=== PATIENT | female | born 1935 | race Caucasian/White ===

== ENCOUNTER 2016-11-16 12:14 | Inpatient (IN) | payer OTHER ==
[~2016-11-16] VITALS: Ht 157.5 cm; Wt 61.2 kg
--- NOTE | ~2016-11-16 | HC ---
[facility] [place] [address] CONSULTATION Name: RODOLFOALEJA Room #: 437-P ADM IN M.R.#: [id number] Admission: 11/16/16 Attend Phys: Daniel Jenkins MD Discharge: Date of : 36 Report #: [id number] THIS REPORT FOR: //name// CC: ANGEL Jenkins DATE OF SERVICE: 11/17/2016 HISTORY OF PRESENT ILLNESS: I have been asked to evaluate this 81-year-old lady who has presented to the emergency department with chief complaint of mid abdominal pain. The patient reported the onset of symptoms at approximately 2300 the evening prior to admission, which would have been Tuesday night. This has been intermittent with the symptoms worsening in the a.m. She denies vomiting, but she does have ongoing nausea with the abdominal pain. The patient's past medical history is significant for a bowel obstruction approximately 7 years ago in the [facility] requiring and necessitating a partial colectomy according to the family, those records are not available. PAST MEDICAL HISTORY: Medical illnesses, she has had no medical illnesses. PAST SURGICAL HISTORY: In 2009, colon resection and also hysterectomy in the past. MEDICATIONS: No known medications. SOCIAL HISTORY: She was recently moved from the [facility] to [place] to be near her family. She denies smoking cigarettes, does not use alcohol. REVIEW OF SYSTEMS: A 10-point review of systems essentially noncontributory except for the recent onset of the abdominal pain associated with nausea. PHYSICAL EXAMINATION: GENERAL: Reveals an elderly lady resting comfortably in bed, IV is infusing, daughter is at the bedside. She is afebrile. VITAL SIGNS: Within normal limits. HEENT: Pupils equal, round, react to light. NECK: Supple, full range of motion. CARDIOVASCULAR: Regular rate and rhythm. LUNGS: Clear at the bases bilaterally. ABDOMEN: Nondistended, mild tenderness in the lower abdomen, well healed long midline scar consistent with the previous colon surgery. RECTAL: Not performed. NEUROLOGIC: She is oriented times 3, seems to be somewhat forgetful and slow with her answers regarding remote medical history. [facility] [address] [place] [address] CONSULTATION Name: ALEJA REYNOLDS MICHELLE Room #: 437-P ADM IN M.R.#: [id number] Admission: 11/16/16 Attend Phys: Daniel Jenkins MD Discharge: Date of : 36 Report #: [id number] DIAGNOSTIC IMPRESSION: Review of laboratory demonstrates white blood cell count within normal limits. CT scan is consistent with possible partial small-bowel obstruction and there is a colonic gas in the colon as well as the rectal . PLAN: I would recommend NG tube placement, IV fluids, repeat labs and x-rays in the a.m. The patient does not have an acute abdomen at this time requiring immediate or urgent operation. Thank you for allowing us to participate in her care. <ELECTRONICALLY SIGNED> By: Mikey Howell MD, FACS 11/18/16 1137 [id number] Mikey Howell MD, FACS /nt
--- NOTE | ~2016-11-16 | O ---
[facility] [place] [address] OPERATIVE REPORT Name: ALEJA REYNOLDS MICHELLE Room #: 437-P ADM IN M.R.#: [id number] Admission: 11/16/16 Attend Phys: Daniel Jenkins MD Discharge: Date of : 36 Report #: [id number] THIS REPORT FOR: //name// CC: ANGEL Jenkins DATE OF SERVICE: 11/19/2016 PREOPERATIVE DIAGNOSIS: Small-bowel obstruction. POSTOPERATIVE DIAGNOSIS: Small-bowel obstruction, secondary to dense adhesive bands of mid small bowel. PROCEDURE: Diagnostic laparoscopy, lysis of adhesions for 46 minutes, release of small-bowel obstruction. SURGEON: Mikey Howell M.D. LIBRARY CLERK TALKING BOOKS: Nikita Ziegler M.D. INDICATIONS: An 81-year-old lady, who had previous colon surgery, consistent with an ileocecectomy approximately 7 years ago, now has presented with approximately 36-48 hours of intense abdominal pain, cramping pain. CT scan was consistent with small-bowel obstruction. OPERATIVE PROCEDURE: The patient had thorough discussion of the procedure, benefits, and risks. She gave informed consent to proceed. She was given preoperative IV antibiotics. She was brought to the operating suite and had satisfactory induction of general anesthesia. She had a Toussaint catheter inserted. She also had an NG tube placed initially. After sterile paint only with DuraPrep was performed, draping was completed. An appropriate timeout was then performed. In the left upper quadrant, a 5 mm trocar with a 5-0 scope was utilized to access the peritoneal cavity. Pneumoperitoneum was then established. The dilated loops of small bowel with the adhesive band were well visualized in the left lower quadrant towards the midline. A second 5 mm trocar port was placed under direct vision in the left lower quadrant. A third 5 mm port was placed in the mid epigastric region just to the left of the falciform ligament. After inspection, the omental adhesions were tight to the anterior abdominal wall. These were taken down with the Sonicision. The bowel obstruction was then addressed with the cold scissors phoenix to lyse the tight adhesive band. Photographs were taken and made part of the medical record. Two segments of the small bowel had some stricturing, from the tight adhesive band. No ischemic bowel was encountered. The bowel was then run from ligament of Treitz identified, run distally toward the right lower quadrant. A few other adhesions were lysed utilizing the cold phoenix. Aspiration of bloody fluid was performed. The bowel in its entirety appeared [place] [address] OPERATIVE REPORT Name: ALEJA REYNOLDS MICHELLE Room #: 437-P [facility] IN M.R.#: [id number] Admission: 11/16/16 Attend Phys: Daniel Jenkins MD Discharge: Date of : 36 Report #: [id number] the strictured area. Further inspection was completed, hemostasis was complete. The pneumoperitoneum was evacuated under direct inspection. The trocars were removed under direct inspection. The port sites had skin approximation with interrupted 4-0 Monocryl sutures. Dermabond was applied. The estimated blood loss for the entire procedure was less than 10 mL. The patient returned to recovery room in stable and satisfactory condition with removal of the Toussaint catheter and NG tube prior to return to PACU. <ELECTRONICALLY SIGNED> By: Mikey Howell MD, FACS 11/19/16 1524 0952 1250 Mikey Howell MD, FACS /nt
[2016-11-16 12:16] VITALS: BP 177/78
[2016-11-16 13:07] LABS: URINE BILIRUBIN NEGATIVE (Negative); URINE BLOOD NEGATIVE (Negative); URINE COLOR YELLOW; URINE GLUCOSE-RANDOM* NEGATIVE (Negative); URINE KETONES NEGATIVE (Negative); URINE LEUKOCYTES-REFLEX TRACE (Negative); URINE PROTEIN (DIPSTICK) NEGATIVE (Negative); URINE UROBILINOGEN 0.2 E.U./dl (0.2-1.0)
[2016-11-16 13:55] LABS: EOSINOPHILS 4.7 % (0.0-3.0); HEMATOCRIT 39.6 % (37.0-47.0); HEMOGLOBIN 13.6 gm/dL (12.0-15.0); LYMPHOCYTES 32.4 % (24.0-44.0); MANUAL DIFF NO; MCH 29.6 pg (26.0-34.0); MCHC 34.3 g/dL (28.0-37.0); MCV 86.5 fL (80.0-100.0); MONOCYTES 8.5 % (1.0-8.0); PLATELET COUNT 319 thou/uL (150-400); POLYS 52.4 % (36.0-66.0); RBC 4.59 mil/uL (4.20-5.00); RDW 13.7 % (10.5-14.5); WBC 5.8 thou/uL (4.0-11.0)
[2016-11-16 13:58] LABS: CALCIUM 9.6 mg/dL (8.5-10.1); CREATININE 0.9 mg/dL (0.6-1.0)
[2016-11-16 14:03] LABS: ALBUMIN 4.1 g/dL (3.4-5.0); TOTAL BILIRUBIN 0.9 mg/dL (<0.1-1.0); TOTAL PROTEIN 7.5 g/dL (6.4-8.2)
[2016-11-16 19:35] VITALS: BP 145/56
[2016-11-16 20:13] VITALS: BP 145/56
[2016-11-17 03:30] VITALS: BP 118/50
[2016-11-17 05:40] LABS: HEMATOCRIT 38.3 % (37.0-47.0); HEMOGLOBIN 12.9 gm/dL (12.0-15.0); MCH 29.6 pg (26.0-34.0); MCHC 33.7 g/dL (28.0-37.0); MCV 87.7 fL (80.0-100.0); RBC 4.37 mil/uL (4.20-5.00); RDW 13.7 % (10.5-14.5); WBC 6.1 thou/uL (4.0-11.0)
[2016-11-17 06:05] LABS: ALBUMIN 3.5 g/dL (3.4-5.0); CREATININE 0.9 mg/dL (0.6-1.0); POTASSIUM 3.5 mmol/L (3.5-5.1); TOTAL BILIRUBIN 0.9 mg/dL (<0.1-1.0); TOTAL PROTEIN 6.6 g/dL (6.4-8.2)
[2016-11-17 07:53] VITALS: BP 121/50
[2016-11-17 08:21] VITALS: BP 121/50
[2016-11-17 15:38] VITALS: BP 136/52
[2016-11-17 19:48] VITALS: BP 133/63
[2016-11-18 04:00] VITALS: BP 144/57
[2016-11-18 07:12] LABS: BASOPHILS 0.5 % (0.0-2.0); EOSINOPHILS 2.5 % (0.0-3.0); HEMATOCRIT 38.5 % (37.0-47.0); HEMOGLOBIN 12.9 gm/dL (12.0-15.0); LYMPHOCYTES 15.8 % (24.0-44.0); MCH 29.4 pg (26.0-34.0); MCHC 33.4 g/dL (28.0-37.0); MCV 87.9 fL (80.0-100.0); MONOCYTES 9.4 % (1.0-8.0); PLATELET COUNT 279 thou/uL (150-400); POLYS 71.8 % (36.0-66.0); RBC 4.38 mil/uL (4.20-5.00); RDW 13.6 % (10.5-14.5); WBC 5.6 thou/uL (4.0-11.0)
[2016-11-18 07:20] LABS: MANUAL DIFF NO
[2016-11-18 07:24] LABS: CALCIUM 8.4 mg/dL (8.5-10.1); CREATININE 0.7 mg/dL (0.6-1.0); POTASSIUM 3.1 mmol/L (3.5-5.1)
[2016-11-18 09:25] VITALS: BP 130/48
[2016-11-18 16:14] VITALS: BP 148/62
[2016-11-18 19:28] VITALS: BP 151/57
[2016-11-19 04:24] VITALS: BP 136/76
[2016-11-19 06:05] LABS: ABSOLUTE NEUTROPHILS 4.2 thou/uL (1.4-8.2); BASOPHILS 0.6 % (0.0-2.0); HEMOGLOBIN 12.8 gm/dL (12.0-15.0); LYMPHOCYTES 19.3 % (24.0-44.0); MCH 29.6 pg (26.0-34.0); MCHC 33.8 g/dL (28.0-37.0); MCV 87.6 fL (80.0-100.0); MONOCYTES 10.3 % (1.0-8.0); PLATELET COUNT 249 thou/uL (150-400); POLYS 66.8 % (36.0-66.0); RBC 4.34 mil/uL (4.20-5.00); RDW 13.3 % (10.5-14.5); WBC 6.3 thou/uL (4.0-11.0)
[2016-11-19 06:09] LABS: MANUAL DIFF NO
[2016-11-19 06:18] LABS: PROTIME 10.7 Seconds (9.3-11.4)
[2016-11-19 06:21] LABS: CALCIUM 8.6 mg/dL (8.5-10.1); CREATININE 0.5 mg/dL (0.6-1.0); POTASSIUM 3.7 mmol/L (3.5-5.1)
[2016-11-19 06:45] VITALS: BP 141/52
[2016-11-19 10:46] VITALS: BP 128/58
[2016-11-19 16:00] VITALS: BP 117/51
[2016-11-19 19:24] VITALS: BP 138/54
[2016-11-20 03:47] LABS: HEMATOCRIT 31.7 % (37.0-47.0); HEMOGLOBIN 10.9 gm/dL (12.0-15.0); MCH 29.8 pg (26.0-34.0); MCHC 34.5 g/dL (28.0-37.0); MCV 86.4 fL (80.0-100.0); RBC 3.67 mil/uL (4.20-5.00); RDW 13.1 % (10.5-14.5); WBC 4.7 thou/uL (4.0-11.0)
[2016-11-20 03:57] LABS: CALCIUM 8.1 mg/dL (8.5-10.1); CREATININE 0.7 mg/dL (0.6-1.0); MAGNESIUM 1.7 mg/dL (1.8-2.4); POTASSIUM 3.3 mmol/L (3.5-5.1)
[2016-11-20 05:32] VITALS: BP 111/63
[2016-11-20 08:22] VITALS: BP 134/45
[2016-11-20] MEDS ORDERED: HYDROCODON-ACE1 EAC7 PO (10:25)
[2016-11-20] MEDS ORDERED: COLACE100 MG PO (12:58)
[2016-11-20 13:32] VITALS: BP 134/45
== END 2016-11-20 14:36 | disposition home or self-care (01) | DRG 336 ==
LOC: ER 12:14 → 4S 16:36 → EROBS 16:36 → 4S 19:42
PROVIDERS: Emergency Medicine; Internal Medicine; Surgery
PROC: B548ZZA Ultrasonography of Superior Vena Cava, Guidance (ICD-10-PCS; 2016-11-18)
PROC: 02HV33Z Insertion of Infusion Device into Superior Vena Cava, Percutaneous Approach (ICD-10-PCS; 2016-11-18)
PROC: 0DN84ZZ Release Small Intestine, Percutaneous Endoscopic Approach (ICD-10-PCS; principal; 2016-11-19)
PROC: 0WJP4ZZ Inspection of Gastrointestinal Tract, Percutaneous Endoscopic Approach (ICD-10-PCS; principal; 2016-11-19)
DX: K56.5 Intestinal adhesions [bands] with obstruction (postinfection) (principal); N17.9 Acute kidney failure, unspecified; Z90.710 Acquired absence of both cervix and uterus; Z90.49 Acquired absence of other specified parts of digestive tract; Z90.721 Acquired absence of ovaries, unilateral; Z79.899 Other long term (current) drug therapy
CPT/HCPCS: 10102; 27000; 50010; 50101; 50249; 50386; 50455; 50555; 50962; 51489; 52265; 53307; 54118; 56462; 56526; 57092; 62110; 62900; 70005

== ENCOUNTER 2017-03-10 20:36 | Emergency (ER) | payer OTHER ==
[~2017-03-10] VITALS: Ht 157.5 cm; Wt 67.1 kg
[~2017-03-10 20:36] MED LIST: COLACE100 MG PO; HYDROCODON-ACE1 EAC7 PO
== END 2017-03-10 22:40 | disposition home or self-care (01) ==
LOC: ER 20:36
DX: S63.501A Unspecified sprain of right wrist, initial encounter (principal); M25.521 Pain in right elbow; Z98.890 Other specified postprocedural states; W01.110A Fall on same level from slipping, tripping and stumbling with subsequent striking against sharp glass, initial encounter; Y93.89 Activity, other specified; Y92.89 Other specified places as the place of occurrence of the external cause; Y99.8 Other external cause status

== ENCOUNTER 2019-12-28 13:28 | Inpatient (IN) | payer OTHER ==
[~2019-12-28] VITALS: Ht 152.4 cm; Wt 56.2 kg
[2019-12-28 13:39] VITALS: BP 147/77
[2019-12-28 14:18] LABS: URINE BILIRUBIN NEGATIVE (Negative); URINE BLOOD TRACE (Negative); URINE CLARITY CLEAR; URINE COLOR YELLOW; URINE GLUCOSE-RANDOM* NEGATIVE (Negative); URINE KETONES TRACE (Negative); URINE LEUKOCYTES-REFLEX NEGATIVE (Negative); URINE PROTEIN (DIPSTICK) NEGATIVE (Negative); URINE UROBILINOGEN 0.2 E.U./dl (0.2-1.0)
[2019-12-28] MEDS ORDERED: CALCITRATE200 MG PO (14:21)
[2019-12-28] MEDS ORDERED: SUPER THERAVIT1 EACH PO (14:22)
[2019-12-28] MEDS ORDERED: CURCUMIN1 GM PO (14:23)
[2019-12-28] MEDS ORDERED: VITAMIN B-121000 MC2 PO (14:24)
[2019-12-28] MEDS ORDERED: MILK OF MA400 MG/5 M PO (14:25)
[2019-12-28 14:26] LABS: URINE NITRITE-REFLEX POSITIVE (Negative)
[2019-12-28] MEDS ORDERED: PROBIOTIC1 EAC7 PO (14:26)
[2019-12-28 14:27] LABS: ABSOLUTE NEUTROPHILS 2.6 thou/uL (1.4-8.2); BASOPHILS 1.4 % (0.0-2.0); EOSINOPHILS 1.2 % (0.0-3.0); HEMATOCRIT 40.2 % (37.0-47.0); HEMOGLOBIN 13.3 gm/dL (12.0-15.0); LYMPHOCYTES 23.9 % (24.0-44.0); MCH 29.1 pg (26.0-34.0); MCHC 33.1 g/dL (28.0-37.0); MONOCYTES 9.6 % (1.0-8.0); PLATELET COUNT 325 thou/uL (150-400); POLYS 63.9 % (36.0-66.0); RBC 4.57 mil/uL (4.20-5.00); RDW 13.8 % (10.5-14.5)
[2019-12-28] MEDS ORDERED: ARTHRICREME85 GM TOP (14:27)
[2019-12-28 14:33] LABS: CALCIUM 8.7 mg/dL (8.5-10.1); CREATININE 0.7 mg/dL (0.6-1.0); POTASSIUM 3.5 mmol/L (3.5-5.1)
[2019-12-28 14:39] LABS: ALBUMIN 3.8 g/dL (3.4-5.0); TOTAL BILIRUBIN 1.1 mg/dL (0.2-1.0); TOTAL PROTEIN 6.7 g/dL (6.4-8.2)
[2019-12-28 14:43] LABS: BACTERIA-REFLEX >30 Many /HPF (None Seen); CASTS None Seen /LPF (None Seen); CRYSTALS None Seen /LPF (None Seen); SQUAMOUS 0-3 Few /LPF (0-3); URINE RBC 0-2 Rare /HPF (0-2); URINE WBC-REFLEX 0-5 Rare /HPF (0-5)
[2019-12-28 16:08] VITALS: BP 141/78
--- NOTE | 2019-12-28 16:56 | EKG ---
[facility] [place] [address] ELECTROCARDIOGRAM REPORT Name: ALEJA REYNOLDS Room #: 170-9 ADM IN M.R.#: [id number] Admission: 12/28/19 Attend Phys: Kemar Guevara DO Discharge: Date of : 36 Report #: [id number] THIS REPORT FOR: cc: FAM - Family physician unknown FAM - Family physician unknown Oscar Alfaro MD [facility] THIS REPORT FOR: //name// [facility] ED Test Date: 2019-12-28 Test Time: 14:29:33 Pat Name: ALEJA REYNOLDS Department: Room: 170 Gender: F Casing Crew: : [id number] Requested By: Ray Lucero Order Number: [id number] MD: Oscar Alfaro Measurements Intervals [facility] Rate: 72 P: 49 MD: 150 QRS: -51 QRSD: 106 T: 75 QT: 420 QTc: 460 Interpretive Statements Sinus rhythm Left anterior fascicular block Abnormal R-wave progression, early transition LVH with secondary repolarization abnormality Anterior Q waves, possibly due to LVH No previous ECG available for comparison Electronically Signed On 12-28-2019 16:56:45 CDT by Oscar Alfaro [email or web address] <ELECTRONICALLY SIGNED> By: Oscar Alfaro MD, [facility] 12/28/19 1656 1429 1429 Oscar Alfaro MD, [facility] /EPI
[2019-12-28 18:21] VITALS: BP 178/94
--- NOTE | 2019-12-28 18:23 | NUR ---
PT ARRIVES TO FLOOR VIA WHEELCHAIR FROM ER-SENT TO ER FROM [facility] WITH REPORTED RECENT SUICIDEAL IDEATION WITH PLAN-PER NURSING NOTES PROVIDED PT INDICATED SHE WAS GOING TO CUT HJER WRIST. UPON ARRIVAL TO UNIT IS NEATLY GROOMED -PEASANT AND COOPERATIVE DURING ADMIT INTERVIEW IS ORIENTED TO NAME ONLY-AWARE SHE IS IN HOSDPITAL BUT STATES "NOT SURE WHICH ONE" DENIES PAin/DISCOMFORT. BP MIDLY ELEVATED AT 178/94-RECHECK AFTER SUPPER QND IS 159/80. DENIES CURRENT SUICIDAL IDEATION STATING "IT WAS A ONE TIME DEAL-I GOT UPSET AND TOLD THEM WHAT I THOUGHT -I GUESS THATS NOT GOOD." PLACED ON FALLS PRECAQUTIONS-CURRENTLY IN DAY ROOM EATING SUPPER WITH PEERS.
[2019-12-28 20:12] VITALS: BP 102/74
--- NOTE | 2019-12-29 02:19 | NUR ---
Pt was in the dayroom at time of assessment. Oriented to self. Pt stated that she was still SI thoughts and her plan was still to OD on her meds. Pt states that has auditory halluciantions, voices telling her to hurt herself, as well as telling her to to get rid of people that are not worth it in her life. When nursing inquired what pt meant by "get rid of people", pt explained that it meant cutting ties with people. Pt denies HI. Pt voiced that when the voices tells her to hurt herself, she wants to do it but usually gets distracted by something else of if someone walks in. Pt voiced that the temptation was heaviest in the afternoon and that was why she had to come in. Pt took her med fine. Pt currently in her room sleeping. Fall precaution in place. Will continue to monitor.
[2019-12-29 07:40] VITALS: BP 151/52
[2019-12-29 10:05] VITALS: BP 151/52
--- NOTE | 2019-12-29 14:22 | NUR ---
PT WAS IN DAY ROOM WHEN i ARRIVED FOR DUTY THIS AM. PT WAS ORIENTATED X1 , SAYING SHE IS HEARING VOICES BUT COULD NOT TELL ME WHAT THEY ARE SAYING. THEN AT TIMES SHE BRIGHTENS UP AND AND IS MORE SOCIAL IE: YES AND NO OR SHORT SENTENCES. MANY TIMES SHE SAYS SHE CANNT EXPLAIN WHAT SHES FEELING. PT IS REALLY NOT INTERESTED IN ANY SOLID FOODS , BUT WAS GREATLY ENCOURAGED TO DRINK TEA,& ENSURE . SHE DID AT LUNCH TIME. ASSEMENT LUNGS CLEAR X2, NO PEDAL EDEMA AND FAINT PULSE. PT WAS ABLE TO SAY SHE NEEDED TO PEE AND DID IN HER BATHROOM. DR MEADOWS TO SEE HER SHORTLY. MEDICATIONS TAKEN WITH NO RESISTANCE. sTAFF WILL CONTINUE TO MONITOR.
[2019-12-29 19:31] VITALS: BP 150/73
--- NOTE | 2019-12-29 21:17 | NUR ---
Care assumed of patient at 1915: Patient seated in w/c, in dayroom at start of shift. Patient restless at times, fidgeting with linens and furniture. Alert and oriented to person only. Confused and forgetful. Patient cooperative and pleasant. Patient having disorganized speech. Trouble focusing and finishing statements started. Patient denies pain and discomfort. When asked if patient is experiencing any suicidal thoughts, patient is able to state, "not anymore". No s/s of AH/VH observed. Patient denies HI/AH/VH. No s/s of paranoia or delusional behaviors. Patient was focused on wanting to go to bed during assessment. Patient ate 100% HS snack. Took HS medication whole without difficulty. Patient continent of bladder on toilet with max assist x1. Balance and gait unsteady. Patient assisted to bed and was able to fall asleep without difficulty. Patient resting quietly at this time.
[2019-12-30 07:50] VITALS: BP 92/50
--- NOTE | 2019-12-30 09:26 | NUR ---
Assumed care 0700. Denies SI/HI. Alert and oriented to person, place and time. No report/indicators of AH/VH, no delusional content to conversation.
--- NOTE | 2019-12-30 16:08 | NUR ---
Self feeds once food is cut up for her. Voided pale yellow urine 1445. Putting a puzzle together. Very confused/forgetful. t one point her sentences/thoughts did not make sense=word salad. Pleasant/coopertive.
[2019-12-30 19:35] VITALS: BP 159/69
[2019-12-30 21:20] VITALS: BP 159/69
--- NOTE | 2019-12-31 01:41 | NUR ---
Assumed care of patient this pm shift. Patient in good spirits, calm and cooperative. Patient sitting in a wheelchair in the mileu upon assessment. Patients affect is blunted. Patient denies pain. Patient denies hi/si. Patient is alert and oriented to self and time. Patients assessment shows no signs of acute distress. Breath sounds are clear, bowel sounds active, and s1 s2 heard with auscultation. Patient takes medications whole with thin fluids. Patient ambulates via wheelchair. Patient did no voice any concerns regarding care. We will continue to monitor via hospital protocol.
[2019-12-31 07:16] VITALS: BP 139/72
--- NOTE | 2019-12-31 09:27 | NUR ---
Pt is oop in day room Pt ate most of the food that was offered this AM. Assessment was as follows lungs clearx2, pedal pulse faint and equL bowel sounds active. MEDICATIONS TAKEN AFTER THEY WERE NEEDED TO BE CRUSHED SO SHE WOULD TAKE THE MEDICATIONS. sTAFF WILL CONTINUE TO OBSERVE PT AND ENCOURAGE FLUIDS. PT PARTICIPATE IN GROUP ACTIVITIES ON UNIT.
--- NOTE | 2019-12-31 13:13 | NUR ---
[facility] contacted [facility] and spoke with Gregoria who said they would like to see pt have a more stable mood to return. She gave the fax number of [phone]. CHAGO faxed updates. CHAGO contacted Good Juárez at [phone] and gave her contact information. She also advised him to return Dr. Guevara's phone call. CHAGO team will continue to follow pt during her stay on this unit.
--- NOTE | 2019-12-31 14:41 | NUR ---
During 1300 recreation group, patient was observed looking to the side of expert medical writer and struggled to remain focused on task at hand. She confirmed that she was experiencing active hallucinations. She also stated, "I played these sports games in high school and they left a bitter taste in my mouth. The other players were out for blood." See group charting.
--- NOTE | 2019-12-31 15:38 | NUR ---
pT ASKED TO GO TO THE BATROOM THIS AM AND VOIDED WHAT SOUNDED LIKE A LARGE AM OF URINE.i ASKE PT IF SHE WAS HEARING VOICES AND SHE SAID YES AND IT ANOYING. SHE WAS ABLE TO SAY SHE HEARED THE VOICE BUT NOT WHAT THEY WERE SAYING. pT DENIES SI, AND HI. pT HAS BEEN OUT IN DAY ROOM MOST OF THE DAY AND PARTICIPAING IN GROUPS. MEDICATIONS NEEDED TO BE CRUSHED TO DAY . aSSESMENT WAS FOLLOWES, PEDAL PULSE WAS FAINT BUT EQUAL. PT HAS EATEN MOST OF HER FOOD OFFERED.+ HEART RATE WNL, BOWEL SOUNDS FAINT.sTAFF WILL CONTINUE TO OBSERVE PT AND OFFER FLUIDS.
[2019-12-31 19:14] VITALS: BP 168/71
[2019-12-31 21:36] VITALS: BP 160/80
--- NOTE | 2020-01-01 04:12 | NUR ---
PATIENT HAS BEEN SLEEPING ALL NIGHT SO FAR. PATIENT APPEARS COMFORTABLE. RESPIRATIONS EVEN AND UNLABORED. BED IN LOW POSITION AND BED ALARM IS ON. ROUTINE ROUNDS TO ASSESS PT STATUS AND SAFETY.
[2020-01-01 07:22] VITALS: BP 156/76
--- NOTE | 2020-01-01 12:28 | NUR ---
HAS BEEN VISIBLE IN DAYROOM SITTING QUIETLY WITH PEERS-COMPLIENT WITH TAKING AM MEDICATIONS CRUSHED IN [place]T. ORIENTED TO PERSON-NOT TO DATE.PLACE. BLUNTED AFFECT-DELAYED VERBAL RESPONSES. DENIES SI/SH/HI. NO NOTED OR REPORTED PSYCHOSIS. APPETITE FAIR. MINIMAL CONVERSATION WITH PEERS-WILL RESPOND TO QUESTIONS ADKED BY STAFF BUT OFFERS NO SPONTANEOUS CONVERSATION. DENIES PAIN/DISCOMFORT. REMAINS ON HIGH FALLS RISK-IN WHEELCHAIR-HAS NOT BEEN OBSERVED ATEMPTING TO GET UP ON OWN. WHEN ASSSITED TO BR-GAIT IS UNSTEADY AND REQUIRES STAFF ASSIST TO MAINTAIN BALANCE.
--- NOTE | 2020-01-01 17:57 | NUR ---
INCREASED RESTLESSNESS THIS PM-OBSERVED TO BE STANDING UP ON OWN 2-3 TIMES DESPITE BEING UNABLE TO AMBULATE ON OWN-WHEN QUESTIONED WHERE SHE WAS GOING OR WHAT SHE NEEDED POINTED TO CLOSED OFFICE DOOR AND STATES "I HAVE TO GO OVER THERE AND APOLOGIZEI DID SOMETHING WRONG" RESTLESS,FIDGETING AND ANXIOUS FACIAL EXPRESSION-DOES NOT RESPOND TO REASSURANCE,SUPPORT FROM STAFF-AND STARES INTENTLY AT OFFICE DOOR. INCREASINGLY RESTLESS/PREOCCUPIED WITH THOUGHT THAT SHE HAS DONE SOMETHING WRONG-ATIVAN 0.5MG PO PRN FOR INCREASED RESTLESSNESS/MILD AGITATION AND IMPULSIVITY.DELUSIONAL THINKING. REMAINS IN DAYROOM-FALLS PRECAUTIONS IN PLACE.
[2020-01-01 19:35] VITALS: BP 132/64
[2020-01-01 23:00] VITALS: BP 132/64
--- NOTE | 2020-01-02 04:18 | NUR ---
Assumed care of patient this pm shift. Patient in good spirits rolling around in a wheelchair in the [facility]. Patient is alert and oriented to self. Patient denies pain. Patient denies hi/si. Patients affect is blunted. Patient takes medications whole with thin fluids and is medication adherent. Patients assessment shows no signs of acute distress. Patients breath sounds are clear, bowel sounds present, s1 s2 heard with auscultation. Patient is wearing a yellow shirt and hospital attire as per protocol for falls risk. Patient is pleasant but confused regarding time, place, and situation. We will continue to monitor patient per hospital protocol.
[2020-01-02 07:22] VITALS: BP 142/87
--- NOTE | 2020-01-02 11:10 | NUR ---
Assumed care 0700. Pt. self fed breakfast. She has been toileted several times. Had two BM's. Needs reminding to ask for help when wanting to change chairs and not get up by herself. Suzan two occasions she 1) tried to take chair alarm out from under her bottom--it was replaced. Also tried to get up with out help. When toileting with help of this nurse, patient had difficult time standing up bearing her own weight. 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 She is deconditioned Lap moise was off per Dr. Guevara's request.
--- NOTE | 2020-01-02 13:37 | NUR ---
[facility]AGO contacted Gregoria with [facility] to arrange d/c for pt on Tuesday. No answer. CHAGO left [facility]. SW team will continue to follow pt during her stay on this unit.
--- NOTE | 2020-01-02 17:15 | NUR ---
Pt. was toileted several times, had 2 Bm"s today. Pleasant, cooperative. Interested in TV programs. Self fed meals, compliant with meds. Meds crushed, put in yogurt. She needs reinforcement to ask for help when wanting to change chairs or go to the toilet. Continent this shift.Denies SI/HI/AH/VH. She does not initiate conversation with other peers.
[2020-01-02 20:00] VITALS: BP 156/60
[2020-01-02 20:16] VITALS: BP 156/60
--- NOTE | 2020-01-03 02:24 | NUR ---
PATIENT HAS BEEN IN BED SINCE START OF SHIFT. SHE IS A/0X1. SHE HAS BEEN CALM AND COOPERATIVE. SHE LOOKS SAD. PATIENT STATES SHE HAD BM TODAY. SHE C/O 4/10 PAIN IN THIGHS. SHE STATES THEY ACHE. ELEVATED LEGS AND REPOSITIONED PATIENT AND TYLENOL 650MG PO GIVEN WITH HS MEDS. NO SI/HI/AVH NOTED TONIGHT. PATIENT SLEEPING. BED IN LOW POSITION AND LOCKED AND BED ALARM IS ON. PATIENT USES WC WHEN SHE IS UP WITH ASSIST X 1. SIDERAILS UP X2. ROUTINE ROUNDING TO ASSESS STATUS AND SAFETY OF PATIENT. CONTINUING TO MONITOR.
[2020-01-03 07:27] VITALS: BP 155/69
--- NOTE | 2020-01-03 08:44 | NUR ---
SITTING QUIETLY IN DAYROOM WITH PEERS ON INITIAL ASSESSMENT. SO FAR THIS AM NOTED TO HAVE BRIEF EPISODIC AGITATION/RESTLESSNESS AND REMAINS IMPULSIVE ATTEMPTING TO GET UP ON OWN AND IS HYPERVIGILANT IN MILLE[place]. ORIENTED TO NAME ONLY. DENIES C/O PAIN/DISCOMFORT. REMAIN ON FALL PRECAUTIOSN FOR SAFTEY.
--- NOTE | 2020-01-03 08:49 | NUR ---
RT Progress Note- Lu has not been readily willing to participate in the milieu or recreation groups since admission. She continues to exhibit some level of paranoia when around large groups. When asked to contribute to group conversations she simply shakes her head no quickly. She has not verbalized hallucinations in group this week.
--- NOTE | 2020-01-03 11:50 | NUR ---
REQUESTED AND RECEIVED TYLENOL 650MG PO PRN FOR REPORTED HEADACHE RATED A 8 ON 1-10 SCALE.
--- NOTE | 2020-01-03 13:43 | NUR ---
CHAGO attempted to make contact with Gregoria with [facility] to arrange discharge on Tuesday. No answer. CHAGO lft msg. CHAGO team will continue to follow pt during her stay on this unit.
--- NOTE | 2020-01-03 15:58 | NUR ---
noted to be increasinglyt restles starting around approx, 1330-sitting in dayroom in wc initially-transitioned to gerichair then given snacks x 2-3-taken for walk in hallway and toileted x 2-3 but still remains restless-impulsive sttemptig to get up on own several times triggering the bed alarm- notified-seroquel 25mg given poprn at 1545 and pt assisted to bed for "nap" does appear to be resting quietly with bed exit alarm on
[2020-01-03 19:29] VITALS: BP 164/70
[2020-01-03 22:30] VITALS: BP 164/70
--- NOTE | 2020-01-04 01:34 | NUR ---
Assumed care of patient this pm shift. Patient calm and cooperative, pleasantly confused. Patients affect is blunted. Patient is alert and oriented to self only. Patient is a falls risk and has on the yellow shirt. Patient ambulates via wheelchair and can walk with assistance x1. Patient is medication adherent and takes medications crushed in yogurt. Patients assessment shows no signs of acute distress. Patient does not report any concerns at this time. Breath sounds clear, s1 s2 heard with auscultation. We will continue to monitor per hospital policy.
[2020-01-04 07:30] VITALS: BP 128/75
--- NOTE | 2020-01-04 13:10 | NUR ---
[facility] contacted [facility] and spoke with Gay; d/c is arranged for 01/06 @11am. [facility]. Pt will need a COVID test. SW team will continue to follow pt during her stay on this unit.
[2020-01-04 14:05] LABS: URINE BILIRUBIN NEGATIVE (Negative); URINE BLOOD NEGATIVE (Negative); URINE CLARITY CLEAR; URINE COLOR YELLOW; URINE GLUCOSE-RANDOM* NEGATIVE (Negative); URINE KETONES TRACE (Negative); URINE LEUKOCYTES-REFLEX NEGATIVE (Negative); URINE NITRITE-REFLEX NEGATIVE (Negative); URINE PROTEIN (DIPSTICK) NEGATIVE (Negative); URINE UROBILINOGEN 0.2 E.U./dl (0.2-1.0)
--- NOTE | 2020-01-04 19:08 | NUR ---
Alert and orientated to name only. Confused speech with infrequent incoherent statements. Denies SI/HI, no behavior/speech suggestive of SI/HI. Sitting in recliner most of day with chair alarm in place. Walked several times with walker with slow, steady gait under supervision. Breath sounds clear. Reg HR auscultated. Color pink with brisk capillary refill and palpable peripheral pulses. No edema noted. Requires assistance with toileting, frequent amts of clear yellow urine per toilet. UA sent. Active bowel sounds over soft, rounded abdomen. Large formed brown-green stool per toilet. Stated she was anxious mid afternoon. States she was anxious of "persons, places and things." Quetiapine 25 mg given PO. Conversing with peers, eating dinner independently. Currently sitting in dining room without s/o distress.
[2020-01-04 20:01] VITALS: BP 148/55
--- NOTE | 2020-01-04 22:11 | NUR ---
PT SITTING IN DAY ROOM TALKING WITH PEER. CHAIR ALARM ON. PT HAD SNACK. PT COMPLIANT WITH MEDS. PT ASKED TO GO TO RESTROOM THE FIRST TIME SHE DID NOT URINATE, THE SECOND TIME SHE DID. A POST VOID BLADDER SCAN SHOWED 93MLS. FLAT AFFECT [facility] CONTACT. PT STATED SHE USED TO BABYSIT AND PAY BILLS FOR A LIVING. PT WALKS HUNCHED OVER AND SHUFFLES WITH HER STEPS. BED ALARM ON.
[2020-01-05 07:49] VITALS: BP 138/63
[2020-01-05 10:24] VITALS: BP 138/63
--- NOTE | 2020-01-05 12:49 | NUR ---
1230 RESUMMED CARE FROM OVERNIGHT SHIFT THIS AM, PATIENT IN DAY ROOM SITTING QUIET. PATIENT ATE BREAKFAST TOOK MEDICATION WITHOUT INCIDENCE, PATIENT COVID 19 TEST DONE AND SENT TO LAB. PATIENT DENIES SI/HI/AH/VH AT PRESENT PATIENTS ABDOMEN SOFT ROUND BOWEL SOUNDS PRESENT. PATIENTS LUNGS CLEAR PATIENT QUIET COOPERATIVE NO BEHAVIORS. PATIENTS HAS NO SKIN BREAKDOWN WILL CONTINUE TO MONITOR PATIENT FOR BEHAVIORS AND SAFETY.
[2020-01-05 19:41] VITALS: BP 182/84
--- NOTE | 2020-01-05 22:08 | NUR ---
Care assumed of patient at 1915: Patient seated in w/c in dayroom at start of shift. Patient calm, pleasant and cooperative. Alert and oriented to person only. Confused and forgetful. Denies pain and discomfort. Denies SI/HI/AH/VH. Denies anxiety and depression. Presents with flat affect. Patient did point across the top of her forehead talking about a "switch" and stated "I just don't know". Patient took HS medication whole without difficulty. Ate 100% HS snack. Incontinent of bladder. Cooperative with preethi care and linen change. Assisted to bed with min assist x1. Patient resting quietly at this time. No aggressive behaviors observed. No delusional or paranoia behaviors observed.
[2020-01-06 07:42] VITALS: BP 125/55
[2020-01-06 10:22] VITALS: BP 125/55
--- NOTE | 2020-01-06 11:26 | NUR ---
1120 RESUMMED CARE FROM OVERNIGHT THIS AM, PATIENT SITTING IN DAY ROOM QUIET. PATIENT ATE BREAKFAST TOOK MEDICATION WITHOUT INCIDENCE PATIENT ORIENTED TO SELF AND PLACE. PATIENTS ABDOMEN SOFT ROUND BOWEL SOUNDS LUNGS CLEAR PATIENT DENIES SI/HI/AH/VH AT PRESENT. PATIENT HAS NOT DISPLAYED AND BEHAVIORS CALM COOPERATIVE. I HAVE TO DO A TB TEST ON PATIENT AT 1730 TO BE READ 48-72 HOURS. WILL CONTINUE TO MONITOR PATIENT FOR BEHAVIORS AND SAFETY.
--- NOTE | 2020-01-06 11:49 | NUR ---
1145 RESUMMED CARE FROM OVERNIGHT SHIFT THIS AM, PATIENT IN DAY ROOM QUIET IN W/C. PATIENT ATE BREAKFAST TOOK MEDICATION WITHOUT INCIDENCE; PATIENT ORIENTED TIMES 2. SELF, PLACE PATIENT DENIES SI/HI/AH/VH AT PRESENT, PAATIENTS ABDOMEN SOFT ROUND BOWEL SOUNDS PRESENT. PATIENT CALM COOPERATIVE HAS NOT DISPLAYED ANY BEHAVIORS. PATIENT CONFUSED AND FORGETFUL AT TIMES WILL CONTINUE TO MONITOR PATIENT FOR SAFETY AND BEHAVIORS.
[2020-01-06 19:29] VITALS: BP 133/53
[2020-01-06 20:12] VITALS: BP 133/53
--- NOTE | 2020-01-06 23:35 | NUR ---
PATIENT WAS SITTING UP IN DINING ROOM TONIGHT IN HER WC. SHE HAD HS SNACK. SHE HAS BEEN CALM AND COOPERATIVE. SHE SPEAKS VERY LOW AND SOFT. SHE WAS TALKING THAT SHE HAD DONE SOME BAD STUFF IN HER PAST THAT SHE IS SORRY ABOUT. UNCLEAR EXACTLY WHAT SHE DID BUT SHE DID MENTION SOMETHING WITH FIRE AND SOMEONE GETTING HURT. TRIED TO LISTEN AND LET PATIENT KNOW THAT SHE HAS BEEN GETTING TREATMENT HERE AND DOING MUCH BETTER AND NOT TO BEAT HERSELF UP OVER PAST BEHAVIOR. PATIENT TOOK HER MEDS WHOLE WITH WATER. PATIENT HAS CHAIR ALARM ON AND ACTIVE IN WC. PATIENT DENIES SI/HI/AVH. MAY BE HAVING DELUSIONS VS REAL PAST BEHAVIOR WITH FIRE. PATIENT HAS BEEN APPROPRIATE AND SMILING/JOKING APPROPRIATELY. SHE DENIES PAIN. A/0X2 AND FORGETFUL. PATIENT VOICED SHE WAS TIRED AND READY FOR BED. PATIENT IS IN BED AT THIS TIME. BED IN LOW POSITION AND BED ALARM IS ON. WILL CONTINUE TO MONITOR.
[2020-01-07 07:23] VITALS: BP 135/57
--- NOTE | 2020-01-07 10:40 | NUR ---
CHAGO received the update from Dr. Guevara that pt made an SI statement that she plans to kill herself by slicing her wrists. CHAGO, Dr. Guevara, and pt's nurse spoke with pt who said she was just joking. After listening to her speak CHAGO gave Dr. Guevara her opinion that pt is still sounding confused. Dr. Guevara said he will make med adjustments and the earliest pt will be ready for d/c is . CHAGO spoke with Gay with [facility] and provided an update. CHAGO asked if pt will need a new COVID test; Gay said she will ask admisnistration adn then call CHAGO back. CHAGO team will continue to follow pt during her stay on this unit.
--- NOTE | 2020-01-07 18:36 | NUR ---
PT WAS FIRST SEEN BY THIS AM, AFTER WHICH HE ASKED ME IF ALEJA SAID SHE 'WAS SI AND WAS CONFUSED' THIS AM. I ALSO WHEN PASSING MEDICATIONS ASKED PT HOW SHE WAS FEELING . ALEJA NSID i TRIKED THE DR. THIS AM AND I FEEL GUILTY. IM NOT SUICIDAL.aSKED WHY SHE SAID THAT SHE SAID 'I DIDNT THINK THEY WERE REALLY GOING TO DISCHARGE ME' DR AND SOCIAL WORK TALKED WITH PT AND DECISION WAS TO KEEP PT A FEW DAYS ,AT TIMES PT DID APPEAER CONFUSED. AASSESMENT , LUNGS CLEAR, X2, BOWELS FAINT SOUNDS, PEDAL PULSE EQUAL X2 . PT ATE MOST OF FOOD OFFERED AND FLUIDS TAKEN WELL. STAFF CONTINUES TO OBSERVE PT.
[2020-01-07 19:20] VITALS: BP 135/57
[2020-01-07 19:41] VITALS: BP 119/53
[2020-01-07 22:19] VITALS: BP 119/53
--- NOTE | 2020-01-07 23:54 | NUR ---
PATIENT WAS UP IN HALLWAY THIS EVENING WHEELING AROUND IN HER WC. SHE DID HAVE HS SNACK. SHE HAS BEEN PLEASANT AND COOPERATIVE. SHE IS ABLE TO VOICE HER REQUESTS. SHE TOLD PEOPLE WHEN SHE NEEDED TO USE THE RESTROOM. SHE HAS HER YELLOW SHIRT ON AND CHAIR ALARM IN CHAIR AND FUNCTIONING. YELLOW NONSLIP SOCKS IN PLACE AND WC WORKING WELL. PATIENT DENIES PAIN. SHE DENIES SI/HI/AVH. SHE STATES SHE TRICKED THE DR TODAY AND TOLD HIM SHE WAS SUICIDAL AND SHE WASN'T. SHE WAS TALKING TO THE [employer]ENT[employer] AND WHEN ASKED WHAT SHE HAD DONE FOR A LIVING SHE TOLD THEM SHE WAS A "HO". THEY ASKED HER WHAT SHE CONSIDERS HERSELF TO BE NOW AND SHE REPLIED, "AN EXPERIENCED HO." PATIENT HAS BEEN HAPPY TONIGHT. SHE TOOK HER HS MEDS WITH WATER AND PUDDING. SHE VOIDED ON THE BSC BEFORE GOING TO SLEEP. BED IN LOW POSITION AND BED ALARM IS ON. CONTINUED ROUNDING TO ASSESS STATUS AND SAFETY OF PATIENT. WILL CONTINUE TO MONITOR.
[2020-01-08 07:31] VITALS: BP 149/63
--- NOTE | 2020-01-08 11:08 | NUR ---
CHAGO faxed pt's updates and COVID test results to Gay with [facility]. CHAGO team will continue to follow pt during her stay on this unit.
[2020-01-08 11:24] VITALS: BP 149/63
--- NOTE | 2020-01-08 12:20 | NUR ---
1220 RESUMMED CARE FROM OVERNIGHT SHIFT THIS AM, PATIENT SITTING IN DAY ROOM QUIET IN . PATIENT ATE BREAKFAST TOOK MEDICATION WITHOUT INCIDENCE. PATIENT DENIES SI/HI/AH/VH AT PRESENT. PATIENTS ABDOMEN SOFT ROUND BOWEL SOUNDS PRESENT LUNGS CLEAR. PATIENT DENIES SI/HI/AH/VH AT PRESENT PATIENT ORIENTED TO SELF ONLY. PATIENT IS QUIET COOPERATIVE NO BEHAVIORS DISPLAYED, PATIENT PARTICIPATED IN GROUP. WILL CONTINUE TO MONITOR PATIENT FOR SAFETY AND BEHAVIORS.
[2020-01-08 20:06] VITALS: BP 188/83
[2020-01-08 20:15] VITALS: BP 188/83
[2020-01-08 21:30] VITALS: BP 165/80
--- NOTE | 2020-01-09 01:58 | NUR ---
PATIENT HAS BEEN UP IN [facility] IN DINING ROOM. AT 1930 PATIENT STATES THAT SHE IS HAVING PAIN IN HER RIGHT RIBS. ASSESSMENT DONE AND TYLENOL 650MG GIVEN WITH COMPLETE PAIN RELIEF. NOTIFIED DR MORAN WHEN HE CALLED IN THAT PATIENT WAS C/O RIGHT RIB PAIN AND THAT PATIENT HAD FALLEN AFTER SUPPER ON DAY SHIFT. STAT ORDER OBTAINED TO DO UNILATERAL RIGHT RIB SERIES. WHEELED PATIENT TO RADIOLOGY WITH FACE MASK ON AND XRAYS COMPLETED. PATIENT HAS NOT HAD PAIN SINCE EARLY THIS EVENING. NEW ORDER FOR ULTRAM FOR INCREASED PAIN PRN. HAVE NOT HAD TO USE THIS SO FAR [facility]. HAVE ASSISTED PATIENT TO THE [facility] A FEW TIMES [facility]. SHE HAD AN HS SNACK OF COOKIES AND PUDDING. SHE DENIES SI/HI/AVH. SHE HAS BEEN A/0X1-2 AND PLEASANTLY CONFUSED. PATIENT IS ABLE TO ASK FOR HELP WITH HER NEEDS. BED IN LOW POSITION AND BED ALARM IS ON. BP WAS HIGH AT BEGINNING OF SHIFT, WHICH I BELIEVE WAS FROM HER RIB PAIN. SYSTOLIC WAS IN 180'S. RECHECKED AFTER PAIN MED GIVEN AT 0 AND SYSTOLIC WAS DOWN TO 160'S. LCTA BILATERALLY, NO SOB, REGULAR RESPIRATIONS. ROUTINE ROUNDING TO ASSESS STATUS AND SAFETY OF PATIENT.
[2020-01-09 10:44] VITALS: BP 129/82
--- NOTE | 2020-01-09 12:40 | NUR ---
1240 RESUMMED CARE FROM OVERNIGHT SHIFT THIS AM, PATIENT IN DAY ROOM SITTING IN WC QUIET. PATIENT ATE BREAKFAST TOOK MEDICATION WITHOUT INCIDENCE PATIENT PLACED IN A RECLINER CHAIR. PATIENT WAS LEANING FORWARD IN W/C AND I DID NOT WANT A REPEAT OF YESTERDAY. PATIENT DENIES SI/HI/AH/VH AT PRESENT, PATIENTS ABDOMEN SOFT ROUND BOWEL SOUNDS PRESENT, PATIENTS LUNGS CLEAR I HELPED PATIENT TO THE BATH ROOM AND PLACED SOME BARRIER CREAM ON BUTTOCK, PATIENT COMPLAINED OF SORENESS IN THIS AREA AND SOME MILD PAIN ON RT SIDE. I GAVE PATIENT SOME TYLENOL FOR THE DISCOMFORT. PATIENT ORIENTED TIMES 2 PATIENT HAS NOT DISPLAYED ANY BEHAVIORS. WILL CONTINUE TO MONITOR PATIENT FOR SAFETY AND BEHAVIORS.
--- NOTE | 2020-01-09 13:16 | NUR ---
CHAGO received notice from Dr. Guevara that he cleared Donn Sorto to come visit pt at 3pm in an attempt to lift her depression and suicidal ideations. CHAGO contacted the house supevisojohny Koch and added him onto the visitor list for today. CHAGO contacted Donn at [phone] and left a msg stating that he is clear to come visit pt today at 3pm. CHAGO team will continue to follow pt during her stay on this unit.
[2020-01-09 19:19] VITALS: BP 154/67
--- NOTE | 2020-01-09 19:27 | NUR ---
Care of patient assumed at 1915. Patient is sleeping in bed. Awakened with some difficulty when medications are brought to her. Compliant with medications crushed and placed in applesauce. Drowsy and oriented to self only at this time. Denies pain. Denies SI/HI. Assisted to toilet then back into bed. Sleeping shortly after.
[2020-01-10 07:17] VITALS: BP 153/64
--- NOTE | 2020-01-10 13:58 | NUR ---
ORIENTED TO NAME ONLY TODAY. ANXIOUS FACIAL EXPRESSION UPON INITITAL APPROACH AND MAJORITY OF SHIFT. RESTLESS,ATTEMPTING TO GET UP ON OWM DESPITE FREQUENT REPOSITIONING AND TOILETING Q 1-2 HOURS-STATING "I NEED TO GO" WHEN ASKED WHERE SHE NEEDED TO GO OFFERS VARIOUS RESPONSES TO "MY KIDS ARE WAITING FOR ME" "MY IS IN THE CAR" OR "I HAVE TO WORK" MINIMAL RESPONSE TO ATTEMPTS TO REASSURE,REORIENT ETC. DOES NOT BELIEVE SHE IS IN THE HOSPITAL STATING "I'VE NEVER BEEN SICK-I WOULD KNOW" DENIES C/O PAIN. INCONTNENT OF URINE X1 SO FAR THIS SHIFT. REQUIRES ASSSIT WITH ALL ADLS'-TAKES PO FLUIDS AND FOOD WITH MUCH ENCOURAGEMENT BUT STATES "ISN'T HUNGRY OR THIRSTY"
[2020-01-10 20:10] VITALS: BP 105/51
--- NOTE | 2020-01-10 20:27 | NUR ---
Assumed care on 01/10/20, Pleasant affect, oriented to name only. Seated in the day room, relaxed but not wataching tv or participating in conversation. Assessment: HRRR, S1S2 noted. Lungs CTA, ABD normoactive BS, reports BM today. Is a yellow fall risk, wearing fall band and yellow T-shirt and yellow socks.
[2020-01-10 23:23] VITALS: BP 105/51
--- NOTE | 2020-01-11 05:58 | NUR ---
Took meds crushed in pudding @ HS. Retired to bed @ HS and slept well, eyes closed, respirations even and unlabored. 3 Bed rails up, Bed in low position, bed alarm set. Monitored q 12 minutes as per protocol.
[2020-01-11 07:40] VITALS: BP 121/60
--- NOTE | 2020-01-11 11:31 | NUR ---
CHAGO contacted Gay with [facility] to arrange d/c for pt on Tuesday. She said she will contact SW after nursing reviews pt's notes; she will relay a good time and if pt is in need of a new COVID test. CHAGO faxed updates. CHAGO team will continue to follow pt during her stay on this unit.
--- NOTE | 2020-01-11 13:25 | NUR ---
INCREASINGLY RESTLESS AFTER LUNCH -ATTEMPTING TO GET UP ON OWN STATING SHE NEEDS TO "FIND THE BABY" GESTURING TO PEOPLE PASSING IN HALLWAYS CALLING OUT "STOP-HELP" WHISTLING LOUDLY AND GESTURING TO PEERS TO COME OVER AND HELP HER. IS NOTED TO GRIMACE WITH REPOSITIONING AND WHEN QUUESTIONED STATES BACK IS HYRTING-UNABLE TO RATE NEMERICALLY WHEN ASKED. ULTRAM 50MG GIVEN PO PRN AT 1330. SEROQUL 25MG GIVEN PO PRN AT 1300 FOR RESTLESSNESS.
[2020-01-11 20:15] VITALS: BP 156/75
--- NOTE | 2020-01-12 05:39 | NUR ---
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 2044 PT AAOX1, VSS, RR EVEN AND NONLABORED ON RA. PT DENIES ANY PAIN AND SI/SH/HI/VAH. PT REMAINED CALM AND COOPERATIVE THROUGHOUT NURSING ASSESSMENT. DURING MEDICATION ADMIN PT HAD NO DIFFICULTIES. LATER PT BECAME COMBATIVE AND STARTED SWINGING AT RN WHEN TRYING TO ASSIST PT PRESENTED CONFUSED. LATER NOTED PT RESTING SUPINE IN BED WITH EYES CLOSED. THROUGHOUT NURSING ROUNDS ZERO S/S OF ACUTE EMOTIONAL OR MEDICAL DISTRESS. WILL CONTINUE TO MONITOR PER [facility] PROTOCOL.
[2020-01-12 07:04] VITALS: BP 181/71
[2020-01-12 09:50] VITALS: BP 101/71
--- NOTE | 2020-01-12 10:26 | NUR ---
1025 RESUMMED CARE FROM OVERNIGHT SHIFT THIS AM, PATIENT SITTING IN DAYROOM QUIET IN WC. PATIENT ATE BREAKFAST TOOK MEDICATION WITHOUT INCIDENCE. PATIENT DENIES SI/HI/AH/VH AT PRESENT. I DID PATIENT'S COVID TEST THIS AM PATIENT ORIENTED TO SELF. PATIENTS ABDOMEN SOFT ROUND BOWEL SOUNDS PRESENT, PATIENTS LUNGS CLEAR. PATIENT SOMETIMES GETS COMBATIVE WITH CARES PATIENT IS CONFUSED AT TIMES. WILL CONTIUE TO MONITOR PATIENT FOR SAFETY AND BEHAVIORS.
[2020-01-12 19:45] VITALS: BP 154/65
[2020-01-12 20:25] VITALS: BP 154/65
--- NOTE | 2020-01-13 04:58 | NUR ---
01-12-20 CARE TRANSFERRED 1899 OBSERVED PT SITTING IN RECLINER IN DAY ROOM. 194 PT AAOX1, VSS, RR EVEN AND NONLABORED ON RA. PT PRESENTS CONFUSED BUT CALM AND COOPERATIVE. PT DENIES PAIN AND SI/SH/HI/VAH. PT HAD NO DIFFICULTIES DURING MEDICATION ADMIN. THROUGHOUT NURSING ROUNDS ZERO S/S OF ACUTE EMOTIONAL OR MEDICAL DISTRESS NOTED, WILL CONTINUE TO MONITOR PER [facility] PROTOCOL.
[2020-01-13 09:18] VITALS: BP 112/56
[2020-01-13 10:38] VITALS: BP 112/56
--- NOTE | 2020-01-13 11:59 | NUR ---
1150 RESUMMED CARE FROM OVERNIGHT SHIFT THIS AM, PATIENT IN DAY ROOM IN RECLINER SITTING QUIETLY. PATIENT ATE BREAKFAST TOOK MEDICATION WITHOUT INCIDENCE. PATIENT DENIES SI/HI/AH/VH AT PRESENT, PATIENTS ABDOMEN SOFT ROUND BOWEL SOUNDS PRESENT. PATIENT LUNGS CLEAR PATIENT COOPERATIVE CALM NO BEHAVIORS THIS SHIFT. PATIENT HAD COVID TEST ON 02/12/20 RESULTS NEGATIVE AND RESULTS PLACED IN CHART. WILL CONTINUE TO MONITOR PATIENT FOR SAFETY AND BEHAVIORS.
[2020-01-13 20:24] VITALS: BP 118/57
--- NOTE | 2020-01-14 06:20 | NUR ---
01-14-20 CARE TRANSFERED 1899 OBSERVED PT SITTING IN RECLINER IN DAY ROOM. 1954 PT AAOX1, VSS, RR EVEN AND NONLABORED ON RA, PT PRESENTED CONFUSED, CALM AND DROWSY. PT DENIES PAIN AND SI/HI. ASSISTED PT WITH HS SNACK AND PT ATE 100% OF ICE CREAM. DURING MEDICATION ADMIN PT HAD NO DIFFICULTIES. ZERO S/S OF ACUTE EMOTIONAL OR MEDICAL DISTRESS NOTED, WILL CONTINUE TO MONITOR PER [facility] PROTOCOL.
[2020-01-14 07:32] VITALS: BP 90/48
[2020-01-14 08:00] VITALS: BP 90/48
--- NOTE | 2020-01-14 08:00 | NUR ---
PT RESTING IN SAMEER CHAIR. PT UNABLE TO AWAKE WITH VERBAL STIMULI. PT SKIN COLOR IS PALE, WARM SKIN. LUNGS CLEAR. NO ABLE TO EAT BREAKFAST OR TAKE MEDS THIS AM. WILL NOTIFY
[2020-01-14 08:49] VITALS: BP 90/48
--- NOTE | 2020-01-14 09:15 | NUR ---
CALLED DR. AUSTIN FOR LABS AND PT BP 90/48, PULSE 66.
--- NOTE | 2020-01-14 11:50 | NUR ---
CHAGO and Dr. Guevara contacted Donn to give him and update on pt's condition and her need for hospice services within the next few days. No answer. Lft msg. CHAGO spoke with Gay and provided her an update. She said all she is in need of is pt's negative COVID test. CHAGO team will continue to follow pt during her stay on this unit.
--- NOTE | 2020-01-14 12:09 | NUR ---
PT WAS AWAKENED WHEN DR. Miner TOUCHED HAND AND ASKED IF SHE WAS OK. SHE STATED YES. THEN WENT BACK TO SLEEP.
[2020-01-14 12:25] LABS: HEMATOCRIT 38.1 % (37.0-47.0); HEMOGLOBIN 12.8 gm/dL (12.0-15.0); MCH 29.3 pg (26.0-34.0); MCHC 33.4 g/dL (28.0-37.0); MCV 87.6 fL (80.0-100.0); RBC 4.36 mil/uL (4.20-5.00); RDW 13.5 % (10.5-14.5); WBC 5.4 thou/uL (4.0-11.0)
--- NOTE | 2020-01-14 12:28 | NUR ---
PT AWAKE WITH EYES CLOSED. PT EATING HAMBURGER. PT TALKING TO STAFF.
[2020-01-14 12:36] LABS: ALBUMIN 3.5 g/dL (3.4-5.0); CALCIUM 9.2 mg/dL (8.5-10.1); CREATININE 0.8 mg/dL (0.6-1.0); TOTAL BILIRUBIN 0.8 mg/dL (0.2-1.0); TOTAL PROTEIN 6.8 g/dL (6.4-8.2)
[2020-01-14] MEDS ORDERED: CARDIZEM CD120 MG PO (12:42)
[2020-01-14] MEDS ORDERED: DEPAKOTE SPRIN125 MG PO (12:43)
[2020-01-14] MEDS ORDERED: REMERON 30 MG T30 M1 PO (12:44)
[2020-01-14] MEDS ORDERED: RISPERDAL 1 MG T1 MG PO (12:44)
[2020-01-14] MEDS ORDERED: SENNA-TIME S T1 EACH PO (12:45)
--- NOTE | 2020-01-14 13:07 | NUR ---
PT AWAKE NOW AND GETTING DRESSED FOR DISCHARGE.
--- NOTE | 2020-01-14 13:14 | NUR ---
GAVE REPORT TO SUZY AND [facility]. PT HAS BEEN IN RECLINER MOSTLY HERE, ASKED SUZY HOW SHE NORMALY TRANSFERS, SHE STATED SHE WALKS WITH A WALKER.
--- NOTE | 2020-01-14 13:19 | NUR ---
CHAGO D/C NOTE Pt is now in need of a stretcher as she is not sitting up all the way. CHAGO relayed this information to Charity with [facility] who reported to CHAGO that SW will need to arrange transportation. CHAGO contacted [employer] and made a new reserv. for pt to occur belkis by stretcher. CHAGO was told they will arrive around 1330.
--- NOTE | 2020-01-14 13:45 | NUR ---
PT LEFT VIA STRECHTER TO [place].
== END 2020-01-14 13:45 | DRG 57 ==
LOC: ER 13:28 → SBH 16:52 → EROBS 16:52 → SBH 17:40
PROVIDERS: Hospitalist; Physician Assistant; ADMIT Psychiatry & Neurology Psychiatry; ATTEND Psychiatry & Neurology Psychiatry
DX: G30.9 Alzheimer's disease, unspecified (principal); F05 Delirium due to known physiological condition; F01.51 Vascular dementia, unspecified severity, with behavioral disturbance; N39.0 Urinary tract infection, site not specified; R45.851 Suicidal ideations; F02.81 Dementia in other diseases classified elsewhere, unspecified severity, with behavioral disturbance; E44.0 Moderate protein-calorie malnutrition; M19.90 Unspecified osteoarthritis, unspecified site; B96.20 Unspecified Escherichia coli [E. coli] as the cause of diseases classified elsewhere; G89.29 Other chronic pain; M25.562 Pain in left knee; G40.909 Epilepsy, unspecified, not intractable, without status epilepticus; R40.0 Somnolence; Z20.828 Contact with and (suspected) exposure to other viral communicable diseases; Z90.710 Acquired absence of both cervix and uterus; Z90.49 Acquired absence of other specified parts of digestive tract; Z68.24 Body mass index [BMI] 24.0-24.9, adult; Z87.891 Personal history of nicotine dependence; Z79.899 Other long term (current) drug therapy
CPT/HCPCS: 10880